=== PATIENT | female | born 1950 | race Caucasian/White ===

== ENCOUNTER → 2018-03-02 | Outpatient (CLI) | payer MEDICARE ==
--- NOTE | 2018-03-02 18:12 | KCIC ---
Bilateral digital screening mammograms with 3-D tomosynthesis: Reason for examination: Routine screening. Recently diagnosed with multiple myeloma. Port in the right chest/breast. Comparison is made to previous studies dated 10/30/2015 and 06/07/2013. Bilateral mammograms in CC and oblique projections were obtained with 2-D imaging and 3-D tomosynthesis imaging on a Siemens Inspiration unit and reviewed on the workstation. Interpretation was made with the benefit of CAD. The skin and nipples show no abnormalities. No abnormal axillary lymph nodes are seen. The breast parenchyma is heterogeneously dense. (Breast density: Category C.) There are no dominant masses, suspicious calcifications or architectural distortion. Benign calcifications are present. Impression: No evidence of malignancy. Recommend routine screening. Your patient's mammogram demonstrates that she has dense breast tissue (breast density category C or D), which could hide abnormalities, and if she has other risk factors for breast cancer that have been identified, she might benefit from supplemental screening tests that may be suggested by you as her ordering physician. Dense breast tissue, in and of itself, is a relatively common condition. Therefore, this information is not provided to cause undue concern, but rather to raise your awareness and to promote discussion with your patient regarding the presence of other risk factors, in addition to dense breast tissue. Your patient's mammography results will be sent to her. BI-RAD Category 2: Benign. "Our facility is accredited by the [employer] Mammography Program." This patient's information has been entered into a reminder system for the patient to be notified with the results of her examination and a target date for the next mammogram. Electronically signed by: Zeniada Salazar MD (03/02/2018 6:08 PM) [id number]
== END | disposition home or self-care (01) ==
LOC: KCIC MAMMO 10:47
PROVIDERS: ATTEND Obstetrics & Gynecology
DX: Z12.31 Encounter for screening mammogram for malignant neoplasm of breast (principal)
CPT/HCPCS: 77063; 77067

== ENCOUNTER 2018-05-18 11:09 | Inpatient (IN) | payer MEDICARE ==
[~2018-05-18] VITALS: Ht 172.7 cm; Wt 72.4 kg
[2018-05-18] MEDS ORDERED: IOHEXOL 350 MG/ML 100 ML VIAL. IV ONE (11:30)
[2018-05-18] MEDS ORDERED: CONTRAST GIVEN. MC PRN (11:45)
[2018-05-18 11:50] LABS: HEMATOCRIT 30.3 % (36.0-47.0); HEMOGLOBIN 9.9 g/dL (12.0-15.5); RED BLOOD COUNT 2.9 x10^6/uL (3.50-5.40); WHITE BLOOD COUNT 3.4 x10^3/uL (4.0-11.0)
[2018-05-18 11:55] LABS: CALCIUM 8.9 mg/dL (8.5-10.1); GFR 24.9; POTASSIUM 3.9 mmol/L (3.5-5.1)
--- NOTE | 2018-05-18 12:00 | RAD ---
CT HEAD INDICATION: code stroke facial weakness COMPARISON: None Available. Exposure: One or more of the following individualized dose reduction techniques were utilized for this examination: 1. Automated exposure control 2. Adjustment of the mA and/or kV according to patient size 3. Use of iterative reconstruction technique TECHNIQUE: 5 mm contiguous axial images were obtained from the skull base to the vertex in both bone and soft tissue algorithm. FINDINGS: No abnormal attenuation within the brain parenchyma. No evidence of acute intracranial hemorrhage. No extra-axial fluid collections. No mass effect or midline shift. Ventricular size is appropriate. Basal cisterns are patent. No fractures identified.Coleman-white differentiation is preserved.Globes and orbits are within normal limits. Paranasal sinuses and mastoid air cells are clear. IMPRESSION: No acute intracranial findings. Dr. Valdes in ER was informed at 11:55 am same day exam. Electronically signed by: Dustin Garcia MD (05/18/2018 11:57 AM) [facility]
--- NOTE | 2018-05-18 12:03 | PHYS DOC ---
Past Medical History Past Medical History: Hypothyroid Past Medical History multiple myeloma Past Surgical History hx of bone marrow biopsy Alcohol Use: None Drug Use: None Adult General Chief Complaint Chief Complaint: NEURO SYMPTOMS/DEFICITS HPI HPI This is a pleasant 67-year-old female presenting to the emergency department today with left-sided facial droop that started at 1045. She has multiple myeloma and is currently undergoing chemotherapy through Dr. baker office. She had an appointment today when her noticed that she had slurred speech and facial asymmetry. He return to the emergency department today for evaluation for possible stroke. Review of systems is negative for chest pain shortness of breath abdominal pain nausea vomiting diaphoresis fevers or chills. She denies acute vision changes. All other review of systems is negative unless otherwise noted in history of present illness. ED course: 67-year-old female presenting to the emergency department today with an episode of slurred speech and left-sided facial asymmetry. On arrival the patient reports that her symptoms are rapidly improving. NIH stroke scale performed which shows mild subtle facial asymmetry. Her speech is becoming more clear. I had a long risk-benefit discussion with the patient and her about TPA administration including the benefits and risks. I also spoke with our neurologist telephone ad taker Dr. molina. TPA relatively contraindicated because the patient's symptoms are rapidly improving. Patient meets inclusion criteria and does not meet absolute contraindication. Patient was offered TPA with the understanding that she does have mild symptoms and rapidly improving symptoms. Patient does not want TPA at this time. 12:02PM. Patient is wanting to leave. I explained the need for MRI and neurology consultation and further evaluation given her strokelike symptoms. Patient does states understanding.12:25PM. I spoke with Dr. Stone to obtain a bed for the patient. Dr. Stone excepted the patient as long as the patient is willing to stay. Pt is agreeable. Basic bridge orders were placed. The patient was then admitted. -Talked to Dr. Molina at 1145. She recommends offering TPA which I did and the pt declines. Inclusion criteria Yes Clinical diagnosis of ischemic stroke causing measurable neurologic deficit Onset of symptoms <4.5 hours before beginning treatment; if the exact time of stroke onset is not known, it is defined as the last time the patient was known to be normal or at neurologic baseline Age ?18 years Exclusion criteria Patient history Ischemic stroke or severe head trauma in the previous three months NO Previous intracranial hemorrhageNO Intra-axial intracranial neoplasmNO Gastrointestinal malignancy or hemorrhage in the previous 21 daysNO Intracranial or intraspinal surgery within the prior three monthsNO Clinical Symptoms suggestive of subarachnoid hemorrhageNO Persistent blood pressure elevation (systolic ?185 mmHg or diastolic ?110 mmHg)* NO Active internal bleedingNO Presentation consistent with infective endocarditisNO Stroke known or suspected to be associated with aortic arch dissection NO Acute bleeding diathesis, including but not limited to conditions defined under 'Hematologic'NO HematologicNO Platelet count <100,000/mm3NO Current anticoagulant use with an INR >1.7 or PT >15 seconds or aPTT >40 seconds or PT >15 secondsNO Therapeutic doses of low molecular weight heparin received within 24 hours (eg, to treat VTE and ACS); this exclusion does not apply to prophylactic doses (eg, to prevent VTE)NO Current use of a direct thrombin inhibitor or direct factor Xa inhibitor with evidence of anticoagulant effect by laboratory tests such as aPTT, INR, ECT, TT , or appropriate factor Xa activity assays NO Head CT Evidence of hemorrhageNO Extensive regions of obvious hypodensity consistent with irreversible injury NO Warnings Only minor and isolated neurologic signs or rapidly improving symptoms? YES Serum glucose <50 mg/dL (<2.8 mmol/L)?NO Serious trauma in the previous 14 daysNO Major surgery in the previous 14 daysNO History of gastrointestinal bleeding (remote) or genitourinary bleeding *NO Seizure at the onset of stroke with postictal neurologic impairmentsNO NO Arterial puncture at a noncompressible site in the previous seven days *NO Large (?10 mm), untreated, unruptured intracranial aneurysmNO Untreated intracranial vascular malformationNO Additional warnings for treatment from 3 to 4.5 hours from symptom onset?? NO Age >80 yearsNO Oral anticoagulant use regardless of INRNO Severe stroke (NIHSS score >25)NO Combination of both previous ischemic stroke and diabetes mellitusNO Review of Systems Review of Systems SEE ABOVE. Current Medications Current Medications Current Medications Medications (Trade) Dose Ordered Sig/Foster Start Time Stop Time Status Last Admin Dose Admin Info (CONTRAST GIVEN -- Rx MONITORING) 1 each PRN DAILY PRN 05/18/18 11:45 05/20/18 11:44 Iohexol (Omnipaque 350 Mg/ml) 75 ml 1X ONCE 05/18/18 11:30 05/18/18 11:32 DC Allergies Allergies Allergies Coded Allergies Type Severity Reaction Last Updated Verified No Known Drug Allergies 05/18/18 No Physical Exam Physical Exam SEE ABOVE Constitutional: Well developed, well nourished, no acute distress, non-toxic appearance. [] HENT: Normocephalic, atraumatic, bilateral external ears normal, oropharynx moist, no oral exudates, nose normal. [] Eyes: PERRLA, EOMI, conjunctiva normal, no discharge. [] Neck: Normal range of motion, no tenderness, supple, no stridor. [] Cardiovascular:Heart rate regular rhythm, no murmur [] Lungs & Thorax: Bilateral breath sounds clear to auscultation [] Abdomen: Bowel sounds normal, soft, no tenderness, no masses, no pulsatile masses. [] Skin: Warm, dry, no erythema, no rash. [] Back: No tenderness, no CVA tenderness. [] Extremities: No tenderness, no cyanosis, no clubbing, ROM intact, no edema. [] Neurologic: Mental status: Awake oriented and alert x3 Cranial nerves: Extraocular movements intact, eyebrows alonso bilaterally, patient has mild facial asymmetry of the left side, uvula elevation nl, shoulder shrug intact bilaterally, tongue protrusion normal DTRs: 2+ Sensation: equal and normal in all extremities Strength: 5/5 in upper and lower extremities bilaterally NIH stroke scale 1. Psychologic: Affect normal, judgement normal, mood normal. [] Current Patient Data Vital Signs Vital Signs Date Time Temp Pulse Resp B/P (MAP) Pulse Ox O2 Delivery O2 Flow Rate FiO2 05/18/18 12:00 104 15 92 05/18/18 11:10 98.3 134/85 (101) Room Air 98.3 Lab Values Laboratory Tests Test 05/18/18 11:16 05/18/18 11:20 Glucose (Fingerstick) 137 mg/dL (70-99) H White Blood Count 3.4 x10^3/uL (4.0-11.0) L Red Blood Count 2.90 x10^6/uL (3.50-5.40) L Hemoglobin 9.9 g/dL (12.0-15.5) L Hematocrit 30.3 % (36.0-47.0) L Mean Corpuscular Volume 104 fL (79-100) H Mean Corpuscular Hemoglobin 34 pg (25-35) Mean Corpuscular Hemoglobin Concent 33 g/dL (31-37) Red Cell Distribution Width 18.0 % (11.5-14.5) H Platelet Count 178 x10^3/uL (140-400) Prothrombin Time 13.0 SEC (11.7-14.0) Prothrombin Time INR 1.0 (0.8-1.1) PTT 23 SEC (24-38) L Sodium Level 142 mmol/L (136-145) Potassium Level 3.9 mmol/L (3.5-5.1) Chloride Level 106 mmol/L (98-107) Carbon Dioxide Level 24 mmol/L (21-32) Anion Gap 12 (6-14) Blood Urea Nitrogen 28 mg/dL (7-20) H Creatinine 2.0 mg/dL (0.6-1.0) H Estimated GFR (Cockcroft-Gault) 24.9 Glucose Level 135 mg/dL (70-99) H Calcium Level 8.9 mg/dL (8.5-10.1) Vitamin B12 Level 1290 pg/mL (247-911) H Thyroid Stimulating Hormone (TSH) 3.295 uIU/mL (0.358-3.74) Laboratory Tests 05/18/18 11:20 Laboratory Tests 05/18/18 11:20 EKG EKG [] Radiology/Procedures Radiology/Procedures [] Course & Med Decision Making Course & Med Decision Making Pertinent Labs and Imaging studies reviewed. (See chart for details) [] Dragon Disclaimer Dragon Disclaimer This electronic medical record was generated, in whole or in part, using a voice recognition dictation system. Departure Departure Impression: Primary Impression: Facial asymmetry Additional Impression: Stroke-like episode Disposition: ADMITTED INPATIENT Admitting Physician: Indigo Stone Condition: STABLE Referrals: NON,STAFF (PCP) Problem Qualifiers JUMANA PALENCIA MD May 18, 2018 12:03
[2018-05-18] MEDS ORDERED: ASPIRIN CHEWABLE 81 MG TABLET. PO ONE (13:00)
--- NOTE | 2018-05-18 13:07 | EKG ---
[facility] [address] [place] [address] Test Date: 2018-05-18 Test Time: 11:20:18 Pat Name: BECKY VELA Department: Room: [facility] Gender: F Outer [employer] Tool: : 1950 Requested By: JUMANA PALENCIA Order Number: [id number] Reading MD: Reed Hines Measurements Intervals [place] Rate: 106 P: 42 FL: 142 QRS: 48 QRSD: 68 T: 49 QT: 304 QTc: 410 Interpretive Statements SINUS TACHYCARDIA Electronically Signed On 05-28-2018 12:30:11 CDT by Reed Hines
--- NOTE | 2018-05-18 13:12 | PDOC1 ---
History and Physical Date of Admission Date of Admission DATE: 05/18/18 TIME: 13:12 Identification/Chief Complaint Chief Complaint slurrred speech and right facial droop 10:45 AM Source Source: Caregiver, Chart review, Patient History of Present Illness History of Present Illness 67-year-old white female, known patient of Dr. Thapa for multiple myeloma and follows closely, 10:45 AM today, noticed slurred speech and right facial droop maybe lasted for minutes only. Now back to baseline. Neuro Exam nonfocal. NIH scale score is only 1. Hemoglobin 9, WBC 3.4 with platelets 178. Blood pressure before. Admitted for stroke workup/TIA with neurology consult and MRI brain She wants to go home tomorrow. She is Supposed to have a shot today in heme onc office and would like to have that before 4 PM Past Medical History Heme/Onc: Other (MM) Past Surgical History Past Surgical History: No pertinent history Family History Family History: No Significant Social History Smoke: No ALCOHOL: none Drugs: None Current Problem List Problem List Problems Medical Problems: (1) Facial asymmetry Status: Acute (2) Stroke-like episode Status: Acute Current Medications Current Medications Current Medications Iohexol (Omnipaque 350 Mg/ml) 75 ml 1X ONCE IV ; Start 05/18/18 at 11:30; Stop 05/18/18 at 11:32; Status DC Info (CONTRAST GIVEN -- Rx MONITORING) 1 each PRN DAILY PRN MC SEE COMMENTS; Start 05/18/18 at 11:45; Stop 05/20/18 at 11:44 Aspirin (Children'S Aspirin) 324 mg 1X ONCE PO ; Start 05/18/18 at 13:00; Stop 05/18/18 at 13:05; Status DC Allergies Allergies: Coded Allergies: No Known Drug Allergies (Unverified , 05/18/18) ROS Review of System A 14 point ROS was completed with the following noted as positive: Other systems reviewed and negative. \CONSTITUTIONAL: No fever or chills EYES: No recent changes SKIN: No rash or itching CARDIOVASCULAR: No chest pain, syncope, palpitations, or edema RESPIRATORY: No SOB or cough GASTROINTESTINAL: No nausea, vomiting or abdominal pain NEUROLOGICAL: No headaches or weakness ENDOCRINE: No cold or heat intolerance GENITOURINARY: No urgency or frequency of urination MUSCULOSKELETAL: No back pain or joint pain LYMPHATICS: No enlarged lymph nodes PSYCHIATRIC: No anxiety or depression Physical Exam General: Alert, Oriented X3, Cooperative, No acute distress HEENT: Atraumatic, PERRLA Lungs: Clear to auscultation Heart: S1S2, RRR, no thrills, no rubs Cardiovascular: S1, S2 Breasts: Normal, Rt breast nml w/o mass, Lt breast nml w/o mass, Nipples normal Abdomen: Normal bowel sounds, Soft, No tenderness, No hepatosplenomegaly, No masses Rectal Exam: not examined PELVIC: Nml ext genitalia Extremities: No clubbing, No cyanosis, No edema, Normal pulses, No tenderness/ swelling Skin: No rashes, No breakdown, No significant lesion Neuro: Normal gait, Normal speech, Strength at 5/5 X4 ext, Normal tone, Sensation intact, Cranial nerves 3-12 NL, Reflexes 2+ Psych/Mental Status: Mental status NL, Mood NL Vitals Vitals Vital Signs Date Time Temp Pulse Resp B/P (MAP) Pulse Ox O2 Delivery O2 Flow Rate FiO2 05/18/18 11:10 98.3 109 11 134/85 (101) 96 Room Air 98.3 Labs Labs Laboratory Tests Test 05/18/18 11:16 05/18/18 11:20 Glucose (Fingerstick) 137 mg/dL (70-99) White Blood Count 3.4 x10^3/uL (4.0-11.0) Red Blood Count 2.90 x10^6/uL (3.50-5.40) Hemoglobin 9.9 g/dL (12.0-15.5) Hematocrit 30.3 % (36.0-47.0) Mean Corpuscular Volume 104 fL (79-100) Mean Corpuscular Hemoglobin 34 pg (25-35) Mean Corpuscular Hemoglobin Concent 33 g/dL (31-37) Red Cell Distribution Width 18.0 % (11.5-14.5) Platelet Count 178 x10^3/uL (140-400) Prothrombin Time 13.0 SEC (11.7-14.0) Prothromb Time International Ratio 1.0 (0.8-1.1) Activated Partial Thromboplast Time 23 SEC (24-38) Sodium Level 142 mmol/L (136-145) Potassium Level 3.9 mmol/L (3.5-5.1) Chloride Level 106 mmol/L (98-107) Carbon Dioxide Level 24 mmol/L (21-32) Anion Gap 12 (6-14) Blood Urea Nitrogen 28 mg/dL (7-20) Creatinine 2.0 mg/dL (0.6-1.0) Estimated GFR (Cockcroft-Gault) 24.9 Glucose Level 135 mg/dL (70-99) Calcium Level 8.9 mg/dL (8.5-10.1) Laboratory Tests Test 05/18/18 11:16 05/18/18 11:20 Glucose (Fingerstick) 137 mg/dL (70-99) White Blood Count 3.4 x10^3/uL (4.0-11.0) Red Blood Count 2.90 x10^6/uL (3.50-5.40) Hemoglobin 9.9 g/dL (12.0-15.5) Hematocrit 30.3 % (36.0-47.0) Mean Corpuscular Volume 104 fL (79-100) Mean Corpuscular Hemoglobin 34 pg (25-35) Mean Corpuscular Hemoglobin Concent 33 g/dL (31-37) Red Cell Distribution Width 18.0 % (11.5-14.5) Platelet Count 178 x10^3/uL (140-400) Prothrombin Time 13.0 SEC (11.7-14.0) Prothromb Time International Ratio 1.0 (0.8-1.1) Activated Partial Thromboplast Time 23 SEC (24-38) Sodium Level 142 mmol/L (136-145) Potassium Level 3.9 mmol/L (3.5-5.1) Chloride Level 106 mmol/L (98-107) Carbon Dioxide Level 24 mmol/L (21-32) Anion Gap 12 (6-14) Blood Urea Nitrogen 28 mg/dL (7-20) Creatinine 2.0 mg/dL (0.6-1.0) Estimated GFR (Cockcroft-Gault) 24.9 Glucose Level 135 mg/dL (70-99) Calcium Level 8.9 mg/dL (8.5-10.1) VTE Prophylaxis Ordered VTE Prophylaxis Devices: Yes VTE Pharmacological Prophylaxi: Yes Assessment/Plan Assessment/Plan Right shallow nasolabial fold, slurred [id number] include TIA rule out acute CVA, vs buchanan's palsy? MM on meds PLan: NIH score 1 OBS Aspirin 1 now Okay to cont all home meds Okay to have that heme onc shot today before 4 PM Consulted neurology MRI brain Full code Seen at ER dw at bedside too MARISELA RODRIGUEZ MD May 18, 2018 13:12
[2018-05-18 14:40] VITALS: BP 132/80
--- NOTE | 2018-05-18 14:57 | RAD ---
MRI of the brain without contrast 05/18/2018 Clinical History: Slurred speech with left-sided facial droop for 4 hours. Multiple myeloma. Technique: Unenhanced T1-weighted sagittal and axial, T2-weighted axial and coronal and FLAIR, gradient echo and diffusion-weighted axial images of the brain were obtained. Findings: Comparison is made to patient's CT scan of the head dated 05/18/2018. There is generalized parenchymal atrophy. Patchy and several small scattered areas of increased signal intensity are seen within the periventricular and subcortical white matter of both cerebral hemispheres on the FLAIR and T2-weighted images consistent with areas of mild small vessel ischemic disease. Small old areas of infarction are seen involving both cerebral hemispheres. These measure 2 mm to 5 mm in size. A 5 mm focal area of increased signal intensity is seen in the left parietal region on the diffusion weighted images which is felt to be artifactual. No acute parenchymal abnormality is seen. No extra-axial fluid collection is seen. There is no definite MRI evidence of acute ischemia/infarction. The paranasal sinuses are essentially clear. Normal flow voids are seen within the major vascular structures surrounding the brain parenchyma. Impression: No acute parenchymal abnormality is seen. Electronically signed by: Levon Berry MD (05/18/2018 2:55 PM) [facility]
--- NOTE | 2018-05-18 15:23 | NUR ---
1350 Received from ED per bed, accompanied by spouse, alert/oriented, stood up transferred self to bed independently. 1357 Tiffanie, charger nurse here to perform NIH stroke scale with ED nurse Liset, RN 1410 Dr. Molina here to assess, then down to MRI per w/c 1440 Returned from MRI vital signs taken, admission started 1450 To cardiology per w/c for Echo
--- NOTE | 2018-05-18 16:39 | PDOC2 ---
NEUROLOGY CONSULT Date of Admission Date of Admission DATE: 05/18/18 TIME: 16:20 Reason for Consult Reason for Consult: IMPRESSION: CVA syndrome. TIA likely. Slurred speech. Facial drooping. Multiple myeloma. Hypothyroidism. Renal insufficiency/failure. RECOMMENDATIONS/PLAN: ASA 325 mg daily. Carotid A US + Doppler. Echo + Bubble study. Fasting lipid panel in a.m. Zocor 5 mg HS, dose adjustment per lipid panel results on 05/19/18. Lab: see orders. Brain MRI w/o contrast on 05/18/18: No acute CVA. History of Present Illness This is 67-year-old female patient with history of multiple myeloma and has been followed with Dr. Thapa closely. She developed symptoms of slurred speech and right facial droop around 10:45 am on 05/18/18. She was brought to [facility] ER of [facility] and her facial drooping was not noticeable. Her NIH was 1 per ER. She was offered TPA after all criteria were met, but patient and her decided no TPA. She was then admitted into hospital for further evaluation. Past Medical History Heme/Onc: Multiple myeloma. Past Surgical History No major surgery recently. Family History Non contributory.. Allergies No Known Drug Allergies (Unverified , 05/18/18) MEDICATIONS: Refer to [facility] SOCIAL HISTORY: Lives at home. Denies smoking, drinking, and illicit drug use. REVIEW OF SYSTEMS: Constitutional: No malnutrition or cachexia. Head: No traumatic brain or head injury. Skin: No edema, or rash. Ear: No infection. Eyes: No vision loss or color blindness. Nose: No bleeding or purulent discharges. Hearing: No hearing decrease. Neck: No injury. Breast: No history of cancer, masses,or discharges. Cardiac: No MN, arrhythmia. Pulmonary: No COPD. GI: No GI ulcer, GI bleeding. Urinary/genital: UTI. Endocrinologic: No cousin face, craniofacial dysmorphism, polydactyly. Skeletomuscular: No muscular atrophy, deformity. Neurological: see HP. Psychiatric: Denies drug use/abuse. Otherwise, not -nflvj review of systems. PHYSICAL EXAMINATION: General appearance is in acute distress. HEENT: Normocephalic and nontraumatic. Eyes, nose, ears, and throat are unremarkable. Neck is supple. No lymphadenopathy. No bruits are heard over the carotid artery. No crepitus. Cardiovascular: S1, S2, regular rate and rhythm. Pulmonary: Clear to auscultation bilaterally. Abdomen: Bowel sounds are positive. Abdomen is soft, nontender, and nondistended. Extremities: No rash, lesions, or edema. No restriction of range of motion NEUROLOGICAL EXAMINATION: Alert Oriented to time, place and person. PERRL. EOMI. CN: no focal findings. Muscle tone: within normal. Muscle strength: 5 DTR: 1-2 Plantar reflex: Flexor response bilaterally Gait: not examined in chair. Sensory exam: no abnormal findings. No cerebellar signs elicited. F-T-N test fine. Current Medications Current Medications Current Medications Iohexol (Omnipaque 350 Mg/ml) 75 ml 1X ONCE IV ; Start 05/18/18 at 11:30; Stop 05/18/18 at 11:32; Status DC Info (CONTRAST GIVEN -- Rx MONITORING) 1 each PRN DAILY PRN MC SEE COMMENTS; Start 05/18/18 at 11:45; Stop 05/20/18 at 11:44 Aspirin (Children'S Aspirin) 324 mg 1X ONCE PO Last administered on 05/18/18at 13:24; Start 05/18/18 at 13:00; Stop 05/18/18 at 13:05; Status DC Levothyroxine Sodium (Synthroid) 88 mcg DAILY06 PO ; Start 05/19/18 at 06:00 Allergies Allergies: Allergies Coded Allergies Type Severity Reaction Last Updated Verified No Known Drug Allergies 05/18/18 No ROS Review of System The patient denies any associated fevers, chills, headache, ear pain, rhinorrhea , sore throat, stiff neck, productive cough, chest pain, shortness of breath, back or flank pain, abdominal pain, nausea, vomiting, diarrhea, constipation, dysuria, rash, numbness, weakness, tingling, incontinence, difficulty ambulating, or diaphoresis. Physical Exam Physical Exam General: Well developed, well nourished, no acute distress, well appearing HEENT: Pupils equally round and reactive to light, EOMI, no discharge, normal conjunctiva Neck: Supple, no nuchal rigidity, no JVD, trachea midline, no tenderness Cardiac: RRR, no murmurs, no gallops, no rubs Chest/Lungs: CTAB, no wheeze, no rhonchi, no crackles Abdomen: soft, non-distended, no guarding, no peritoneal signs, non-tender Back: No tenderness Extremities: no edema, pulses intact, non-tender,capillary refill <3 sec bilateral upper and lower extremities, Neuro: Alert and oriented x 4, no focal deficits, normal speech Vitals Vitals: Vital Signs Date Time Temp Pulse Resp B/P (MAP) Pulse Ox O2 Delivery O2 Flow Rate FiO2 05/18/18 14:40 98.4 83 14 132/80 (97) 96 Room Air 98.4 Labs Labs Laboratory Tests Test 05/18/18 11:16 05/18/18 11:20 Glucose (Fingerstick) 137 mg/dL (70-99) White Blood Count 3.4 x10^3/uL (4.0-11.0) Red Blood Count 2.90 x10^6/uL (3.50-5.40) Hemoglobin 9.9 g/dL (12.0-15.5) Hematocrit 30.3 % (36.0-47.0) Mean Corpuscular Volume 104 fL (79-100) Mean Corpuscular Hemoglobin 34 pg (25-35) Mean Corpuscular Hemoglobin Concent 33 g/dL (31-37) Red Cell Distribution Width 18.0 % (11.5-14.5) Platelet Count 178 x10^3/uL (140-400) Prothrombin Time 13.0 SEC (11.7-14.0) Prothromb Time International Ratio 1.0 (0.8-1.1) Activated Partial Thromboplast Time 23 SEC (24-38) Sodium Level 142 mmol/L (136-145) Potassium Level 3.9 mmol/L (3.5-5.1) Chloride Level 106 mmol/L (98-107) Carbon Dioxide Level 24 mmol/L (21-32) Anion Gap 12 (6-14) Blood Urea Nitrogen 28 mg/dL (7-20) Creatinine 2.0 mg/dL (0.6-1.0) Estimated GFR (Cockcroft-Gault) 24.9 Glucose Level 135 mg/dL (70-99) Calcium Level 8.9 mg/dL (8.5-10.1) Vitamin B12 Level 1290 pg/mL (247-911) Thyroid Stimulating Hormone (TSH) 3.295 uIU/mL (0.358-3.74) Laboratory Tests Test 05/18/18 11:16 05/18/18 11:20 Glucose (Fingerstick) 137 mg/dL (70-99) White Blood Count 3.4 x10^3/uL (4.0-11.0) Red Blood Count 2.90 x10^6/uL (3.50-5.40) Hemoglobin 9.9 g/dL (12.0-15.5) Hematocrit 30.3 % (36.0-47.0) Mean Corpuscular Volume 104 fL (79-100) Mean Corpuscular Hemoglobin 34 pg (25-35) Mean Corpuscular Hemoglobin Concent 33 g/dL (31-37) Red Cell Distribution Width 18.0 % (11.5-14.5) Platelet Count 178 x10^3/uL (140-400) Prothrombin Time 13.0 SEC (11.7-14.0) Prothromb Time International Ratio 1.0 (0.8-1.1) Activated Partial Thromboplast Time 23 SEC (24-38) Sodium Level 142 mmol/L (136-145) Potassium Level 3.9 mmol/L (3.5-5.1) Chloride Level 106 mmol/L (98-107) Carbon Dioxide Level 24 mmol/L (21-32) Anion Gap 12 (6-14) Blood Urea Nitrogen 28 mg/dL (7-20) Creatinine 2.0 mg/dL (0.6-1.0) Estimated GFR (Cockcroft-Gault) 24.9 Glucose Level 135 mg/dL (70-99) Calcium Level 8.9 mg/dL (8.5-10.1) Vitamin B12 Level 1290 pg/mL (247-911) Thyroid Stimulating Hormone (TSH) 3.295 uIU/mL (0.358-3.74) JEFF NOBLES MD May 18, 2018 16:39
[2018-05-18] MEDS ORDERED: ONDANSETRON ODT 4 MG TAB.RAPDIS. PO PRN (17:00)
[2018-05-18] MEDS ORDERED: LOPERAMIDE 2 MG CAPSULE PO PRN (17:00)
[2018-05-18 19:05] VITALS: BP 118/80
--- NOTE | 2018-05-18 19:07 | CARD ---
MR#: [id number] Date of Study: 05/18/2018 Ordering Physician: JEFF NOBLES, Referring Physician: MARISELA RODRIGUEZ Tech: Blossom Sandhu [facility] APPROVED REPORT EXAM: Two-dimensional and M-mode echocardiogram with Doppler, color Doppler with bubble study. Other Information Quality : GoodHR: 86bpm Rhythm : NSR INDICATION CVA/TIA 2D DIMENSIONS RVDd3.0 (2.9-3.5cm)Left Atrium(2D)2.9 (1.6-4.0cm) IVSd1.1 (0.7-1.1cm)Aortic Root(2D)3.4 (2.0-3.7cm) LVDd3.9 (3.9-5.9cm)LVOT Diameter2.4 (1.8-2.4cm) PWd0.9 (0.7-1.1cm)LVDs2.8 (2.5-4.0cm) FS (%) 28.2 %SV37.1 ml LVEF(%)55.1 (>50%) M-Mode DIMENSIONS Left Atrium(MM)2.82 (2.5-4.0cm)Aortic Root3.19 (2.2-3.7cm) Aortic Valve AoV Peak Devon.97.8cm/sAoV VTI17.7cm AO Peak GR.3.8mmHgLVOT Peak Devon.81.9cm/s AO Mean GR.2mmHgAVA (VMAX)3.82cm2 ROOPA (VTI)3.50cm2 Mitral Valve MV E Rbpxhssw67.8cm/sMV DECEL [id number] MV A Hiqzyhri17.9cm/sE/A Ratio0.7 MV A Jorsvuyl83rs Pulmonary Valve PV Peak Bmsgonwx99.8cm/s Tricuspid Valve TR P. Jbkfdvyt003ry/sRAP VMJBWLLV8nhCn TR Peak Gr.40zjZjWMFF95opLl LEFT VENTRICLE The left ventricle is normal size. There is normal left ventricular wall thickness. The left ventricu lar systolic function is normal and the ejection fraction is within normal range. The Ejection Fracti on is 55-60%. There is normal LV segmental wall motion. Transmitral Doppler flow pattern is Grade I-a bnormal relaxation pattern. RIGHT VENTRICLE The right ventricle is normal size. There is normal right ventricular wall thickness. The right ventr icular systolic function is normal. ATRIA The left atrium size is normal. The right atrium size is normal. The interatrial septum is intact wit h no evidence for an atrial septal defect or patent foramen ovale as noted on 2-D or Doppler imaging. Injection of bubbles documented no interatrial shunt. AORTIC VALVE The aortic valve is normal in structure and function. The aortic valve is trileaflet. Doppler and Col or Flow revealed no significant aortic regurgitation. There is no significant aortic valvular stenosi s. There is no aortic valvular vegetation. MITRAL VALVE The mitral valve is normal in structure and function. There is no evidence of mitral valve prolapse. There is no mitral valve stenosis. Doppler and Color-flow revealed trace mitral regurgitation. TRICUSPID VALVE The tricuspid valve is normal in structure and function. Doppler and Color Flow revealed trace tricus pid regurgitation. The PA pressure was estimated at 22 mmHg. There is no tricuspid valve prolapse or vegetation. There is no tricuspid valve stenosis. PULMONIC VALVE The pulmonary valve is normal in structure and function. Doppler and Color Flow revealed trace pulmon ic valvular regurgitation. There is no pulmonic valvular stenosis. GREAT VESSELS The aortic root is borderline enlarged at 3.5cm. The ascending aorta is borderline enlarged at 3.7cm. There is mild pulmonary artery dilatation. The IVC is normal in size and collapses >50% with inspira tion. PERICARDIAL EFFUSION There is no evidence of significant pericardial effusion. Critical Notification Critical Value: No <Conclusion> The left ventricular systolic function is normal and the ejection fraction is within normal range. Th e Ejection Fraction is 55-60%. There is normal LV segmental wall motion. The interatrial septum is intact with no evidence for an atrial septal defect or patent foramen ovale as noted on 2-D or Doppler imaging. Injection of bubbles documented no interatrial shunt. The ascending aorta is borderline enlarged at 3.7cm. There is mild pulmonary artery dilatation. Signed by : Byron Wetzel, Electronically Approved : 05/18/2018 19:06:29
--- NOTE | 2018-05-18 20:10 | NUR ---
1630 Addendum: 05/18/18 at 2013 by KAYCEE ROLDAN RN 1630 Admitted from ED with stroke like symptoms, accompanied by spouse, alert/oriented, very talkative, NIH stroke scale completed by charge nurse, denies pain or discomfort, oriented to surroundings, call light within reach, side rails up x 2
[2018-05-18] MEDS: ACYCLOVIR 200 MG CAPSULE. PO SCH (20:57)
[2018-05-18] MEDS ORDERED: SIMVASTATIN 5 MG TABLET. PO SCH (21:00)
[2018-05-18 22:31] LABS: BILIRUBIN,URINE NEGATIVE (NEG); CLARITY,URINE CLEAR; COLOR,URINE YELLOW; NITRITE,URINE NEGATIVE (NEG); PROTEIN,URINE NEGATIVE (NEG-TRACE); UROBILINOGEN,URINE 0.2 mg/dL (0.2 mg/dL)
[2018-05-18 22:39] LABS: BACTERIA,URINE FEW /HPF (0-FEW); RBC,URINE 0 /HPF (0-2); SQUAMOUS EPITHELIAL CELL,UR OCC /LPF
[2018-05-18 23:19] VITALS: BP 96/60
[2018-05-19 03:53] VITALS: BP 95/61
[2018-05-19 05:14] LABS: CHOLESTEROL/HDL RATIO 2.8
[2018-05-19] MEDS ORDERED: LEVOTHYROXINE 88 MCG TABLET PO SCH ×2 (06:00)
[2018-05-19 07:00] VITALS: BP 121/88
[2018-05-19] MEDS ORDERED: ASPIRIN 325 MG TABLET PO SCH (08:00)
[2018-05-19] MEDS: ACYCLOVIR 200 MG CAPSULE. PO SCH (08:10)
--- NOTE | 2018-05-19 09:46 | PDOC ---
PROGRESS NOTES Chief Complaint Chief Complaint She was brought to [facility] ER of [facility] and her facial drooping was not noticeable. Her NIH was 1 per ER. She was offered TPA after all criteria were met, but patient and her decided no TPA. She was then admitted into hospital for further evaluation. Past Medical History Heme/Onc: Multiple myeloma. Past Surgical History No major surgery recently. Family History Non contributory.. Allergies No Known Drug Allergies (Unverified , 05/18/18) MEDICATIONS: Refer to [facility] SOCIAL HISTORY: Lives at home. Denies smoking, drinking, and illicit drug use. 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 These measure 2 mm to 5 mm in size. A 5 mm focal area of increased signal intensity is seen in the left parietal region on the diffusion weighted images which is felt to be artifactual. MACROCYTIC ANEMIA HYPERGLYCEMIA MULTIPLE MYELOMA PLan: TELE NEUROCHECKS Q 4 HRS CRISTOPHER Aspirin CAROTID DOPPLERS pending Okay to cont all home meds NEUROLOGY FOLLOWING MRI brain Full code ECHO WITH BUBBLE STUDY FLP LIPITOR 40MG PO Q HS ACCUCHECKS HEME CONSULT done last night baseline cr about 2 recently dw Vitals Vitals Vital Signs Date Time Temp Pulse Resp B/P (MAP) Pulse Ox O2 Delivery O2 Flow Rate FiO2 05/19/18 07:00 98.1 97 18 121/88 (99) 97 Room Air 98.1 Physical Exam General: Alert, Oriented X3, Cooperative, No acute distress Heart: Regular rate, Normal S1, Normal S2 Lungs: Clear Abdomen: Normal bowel sounds, Soft, No tenderness, No hepatosplenomegaly, No masses Extremities: No clubbing, No cyanosis, No edema, Normal pulses, No tenderness/ swelling Skin: No rashes, No breakdown, No significant lesion Labs LABS ATRIA The left atrium size is normal. The right atrium size is normal. The interatrial septum is intact with no evidence for an atrial septal defect or patent foramen ovale as noted on 2-D or Doppler imaging. Injection of bubbles documented no interatrial shunt. AORTIC VALVE The aortic valve is normal in structure and function. The aortic valve is trileaflet. Doppler and Color Flow revealed no significant aortic regurgitation. There is no significant aortic valvular stenosis. There is no aortic valvular vegetation. MITRAL VALVE The mitral valve is normal in structure and function. There is no evidence of mitral valve prolapse. There is no mitral valve stenosis. Doppler and Color- flow revealed trace mitral regurgitation. TRICUSPID VALVE The tricuspid valve is normal in structure and function. Doppler and Color Flow revealed trace tricuspid regurgitation. The PA pressure was estimated at 22 mmHg. There is no tricuspid valve prolapse or vegetation. There is no tricuspid valve stenosis. PULMONIC VALVE The pulmonary valve is normal in structure and function. Doppler and Color Flow revealed trace pulmonic valvular regurgitation. There is no pulmonic valvular stenosis. GREAT VESSELS The aortic root is borderline enlarged at 3.5cm. The ascending aorta is borderline enlarged at 3.7cm. There is mild pulmonary artery dilatation. The IVC is normal in size and collapses >50% with inspiration. PERICARDIAL EFFUSION There is no evidence of significant pericardial effusion. Critical Notification Critical Value: No <Conclusion> The left ventricular systolic function is normal and the ejection fraction is within normal range. The Ejection Fraction is 55-60%. There is normal LV segmental wall motion. The interatrial septum is intact with no evidence for an atrial septal defect or patent foramen ovale as noted on 2-D or Doppler imaging. Injection of bubbles documented no interatrial shunt. The ascending aorta is borderline enlarged at 3.7cm. There is mild pulmonary artery dilatation. Signed by : Chris Wetzel, Electronically Approved : 05/18/2018 19:06:29 DICTATED and SIGNED BY: CHRIS WETZEL MD DATE: 05/18/18 1906 [id number] CC: CHRIS WETZEL MD; NO PCP; JEFF NOBLES MD; MARISELA RODRIGUEZ MD ~ Page of MRI of the brain without contrast 05/18/2018 Clinical History: Slurred speech with left-sided facial droop for 4 hours. Multiple myeloma. Technique: Unenhanced T1-weighted sagittal and axial, T2-weighted axial and coronal and FLAIR, gradient echo and diffusion-weighted axial images of the brain were obtained. Findings: Comparison is made to patient's CT scan of the head dated 05/18/2018. There is generalized parenchymal atrophy. Patchy and several small scattered areas of increased signal intensity are seen within the periventricular and subcortical white matter of both cerebral hemispheres on the FLAIR and T2-weighted images consistent with areas of mild small vessel ischemic disease. Small old areas of infarction are seen involving both cerebral hemispheres. These measure 2 mm to 5 mm in size. A 5 mm focal area of increased signal intensity is seen in the left parietal region on the diffusion weighted images which is felt to be artifactual. No acute parenchymal abnormality is seen. No extra-axial fluid collection is seen. There is no definite MRI evidence of acute ischemia/infarction. The paranasal sinuses are essentially clear. Normal flow voids are seen within the major vascular structures surrounding the brain parenchyma. Impression: No acute parenchymal abnormality is seen. Laboratory Tests Test 05/18/18 11:16 05/18/18 11:20 05/18/18 22:07 05/19/18 03:50 Glucose (Fingerstick) 137 mg/dL (70-99) White Blood Count 3.4 x10^3/uL (4.0-11.0) Red Blood Count 2.90 x10^6/uL (3.50-5.40) Hemoglobin 9.9 g/dL (12.0-15.5) Hematocrit 30.3 % (36.0-47.0) Mean Corpuscular Volume 104 fL (79-100) Mean Corpuscular Hemoglobin 34 pg (25-35) Mean Corpuscular Hemoglobin Concent 33 g/dL (31-37) Red Cell Distribution Width 18.0 % (11.5-14.5) Platelet Count 178 x10^3/uL (140-400) Prothrombin Time 13.0 SEC (11.7-14.0) Prothromb Time International Ratio 1.0 (0.8-1.1) Activated Partial Thromboplast Time 23 SEC (24-38) Sodium Level 142 mmol/L (136-145) Potassium Level 3.9 mmol/L (3.5-5.1) Chloride Level 106 mmol/L (98-107) Carbon Dioxide Level 24 mmol/L (21-32) Anion Gap 12 (6-14) Blood Urea Nitrogen 28 mg/dL (7-20) Creatinine 2.0 mg/dL (0.6-1.0) Estimated GFR (Cockcroft-Gault) 24.9 Glucose Level 135 mg/dL (70-99) Calcium Level 8.9 mg/dL (8.5-10.1) Vitamin B12 Level 1290 pg/mL (247-911) Thyroid Stimulating Hormone (TSH) 3.295 uIU/mL (0.358-3.74) Urine Color Yellow Urine Clarity Clear Urine pH 5.0 Urine Specific [place] 1.025 Urine Protein Negative mg/dL (NEG-TRACE) Urine Glucose (UA) 500 mg/dL (NEG) Urine Ketones (Stick) Negative mg/dL (NEG) Urine Blood Negative (NEG) Urine Nitrite Negative (NEG) Urine Bilirubin Negative (NEG) Urine Urobilinogen Dipstick 0.2 mg/dL (0.2 mg/dL) Urine Leukocyte Esterase Negative (NEG) Urine RBC 0 /HPF (0-2) Urine WBC 5-10 /HPF (0-4) Urine Squamous Epithelial Cells Occ /LPF Urine Bacteria Few /HPF (0-FEW) Urine Mucus Mod /LPF Triglycerides Level 70 mg/dL (0-150) Cholesterol Level 259 mg/dL (0-200) LDL Cholesterol, Calculated 154 mg/dL (0-100) VLDL Cholesterol, Calculated 14 mg/dL (0-40) Non-HDL Cholesterol Calculated 168 mg/dL (0-129) HDL Cholesterol 91 mg/dL (40-60) Cholesterol/HDL Ratio 2.8 Assessment and Plan Assessmemt and Plan Problems Medical Problems: (1) Facial asymmetry Status: Acute (2) Stroke-like episode Status: Acute Comment Review of Relevant I have reviewed the following items rigo (where applicable) has been applied. Labs Laboratory Tests Test 05/18/18 11:16 05/18/18 11:20 05/18/18 22:07 05/19/18 03:50 Glucose (Fingerstick) 137 mg/dL (70-99) White Blood Count 3.4 x10^3/uL (4.0-11.0) Red Blood Count 2.90 x10^6/uL (3.50-5.40) Hemoglobin 9.9 g/dL (12.0-15.5) Hematocrit 30.3 % (36.0-47.0) Mean Corpuscular Volume 104 fL (79-100) Mean Corpuscular Hemoglobin 34 pg (25-35) Mean Corpuscular Hemoglobin Concent 33 g/dL (31-37) Red Cell Distribution Width 18.0 % (11.5-14.5) Platelet Count 178 x10^3/uL (140-400) Prothrombin Time 13.0 SEC (11.7-14.0) Prothromb Time International Ratio 1.0 (0.8-1.1) Activated Partial Thromboplast Time 23 SEC (24-38) Sodium Level 142 mmol/L (136-145) Potassium Level 3.9 mmol/L (3.5-5.1) Chloride Level 106 mmol/L (98-107) Carbon Dioxide Level 24 mmol/L (21-32) Anion Gap 12 (6-14) Blood Urea Nitrogen 28 mg/dL (7-20) Creatinine 2.0 mg/dL (0.6-1.0) Estimated GFR (Cockcroft-Gault) 24.9 Glucose Level 135 mg/dL (70-99) Calcium Level 8.9 mg/dL (8.5-10.1) Vitamin B12 Level 1290 pg/mL (247-911) Thyroid Stimulating Hormone (TSH) 3.295 uIU/mL (0.358-3.74) Urine Color Yellow Urine Clarity Clear Urine pH 5.0 Urine Specific [place] 1.025 Urine Protein Negative mg/dL (NEG-TRACE) Urine Glucose (UA) 500 mg/dL (NEG) Urine Ketones (Stick) Negative mg/dL (NEG) Urine Blood Negative (NEG) Urine Nitrite Negative (NEG) Urine Bilirubin Negative (NEG) Urine Urobilinogen Dipstick 0.2 mg/dL (0.2 mg/dL) Urine Leukocyte Esterase Negative (NEG) Urine RBC 0 /HPF (0-2) Urine WBC 5-10 /HPF (0-4) Urine Squamous Epithelial Cells Occ /LPF Urine Bacteria Few /HPF (0-FEW) Urine Mucus Mod /LPF Triglycerides Level 70 mg/dL (0-150) Cholesterol Level 259 mg/dL (0-200) LDL Cholesterol, Calculated 154 mg/dL (0-100) VLDL Cholesterol, Calculated 14 mg/dL (0-40) Non-HDL Cholesterol Calculated 168 mg/dL (0-129) HDL Cholesterol 91 mg/dL (40-60) Cholesterol/HDL Ratio 2.8 Laboratory Tests Test 05/18/18 11:16 05/18/18 11:20 05/18/18 22:07 05/19/18 03:50 Glucose (Fingerstick) 137 mg/dL (70-99) White Blood Count 3.4 x10^3/uL (4.0-11.0) Red Blood Count 2.90 x10^6/uL (3.50-5.40) Hemoglobin 9.9 g/dL (12.0-15.5) Hematocrit 30.3 % (36.0-47.0) Mean Corpuscular Volume 104 fL (79-100) Mean Corpuscular Hemoglobin 34 pg (25-35) Mean Corpuscular Hemoglobin Concent 33 g/dL (31-37) Red Cell Distribution Width 18.0 % (11.5-14.5) Platelet Count 178 x10^3/uL (140-400) Prothrombin Time 13.0 SEC (11.7-14.0) Prothromb Time International Ratio 1.0 (0.8-1.1) Activated Partial Thromboplast Time 23 SEC (24-38) Sodium Level 142 mmol/L (136-145) Potassium Level 3.9 mmol/L (3.5-5.1) Chloride Level 106 mmol/L (98-107) Carbon Dioxide Level 24 mmol/L (21-32) Anion Gap 12 (6-14) Blood Urea Nitrogen 28 mg/dL (7-20) Creatinine 2.0 mg/dL (0.6-1.0) Estimated GFR (Cockcroft-Gault) 24.9 Glucose Level 135 mg/dL (70-99) Calcium Level 8.9 mg/dL (8.5-10.1) Vitamin B12 Level 1290 pg/mL (247-911) Thyroid Stimulating Hormone (TSH) 3.295 uIU/mL (0.358-3.74) Urine Color Yellow Urine Clarity Clear Urine pH 5.0 Urine Specific [place] 1.025 Urine Protein Negative mg/dL (NEG-TRACE) Urine Glucose (UA) 500 mg/dL (NEG) Urine Ketones (Stick) Negative mg/dL (NEG) Urine Blood Negative (NEG) Urine Nitrite Negative (NEG) Urine Bilirubin Negative (NEG) Urine Urobilinogen Dipstick 0.2 mg/dL (0.2 mg/dL) Urine Leukocyte Esterase Negative (NEG) Urine RBC 0 /HPF (0-2) Urine WBC 5-10 /HPF (0-4) Urine Squamous Epithelial Cells Occ /LPF Urine Bacteria Few /HPF (0-FEW) Urine Mucus Mod /LPF Triglycerides Level 70 mg/dL (0-150) Cholesterol Level 259 mg/dL (0-200) LDL Cholesterol, Calculated 154 mg/dL (0-100) VLDL Cholesterol, Calculated 14 mg/dL (0-40) Non-HDL Cholesterol Calculated 168 mg/dL (0-129) HDL Cholesterol 91 mg/dL (40-60) Cholesterol/HDL Ratio 2.8 Medications Current Medications Iohexol (Omnipaque 350 Mg/ml) 75 ml 1X ONCE IV ; Start 05/18/18 at 11:30; Stop 05/18/18 at 11:32; Status DC Info (CONTRAST GIVEN -- Rx MONITORING) 1 each PRN DAILY PRN MC SEE COMMENTS; Start 05/18/18 at 11:45; Stop 05/20/18 at 11:44 Aspirin (Children'S Aspirin) 324 mg 1X ONCE PO Last administered on 05/18/18at 13:24; Start 05/18/18 at 13:00; Stop 05/18/18 at 13:05; Status DC Levothyroxine Sodium (Synthroid) 88 mcg DAILY06 PO ; Start 05/19/18 at 06:00; Status Cancel Aspirin (Manju Aspirin) 325 mg DAILYWBKFT PO Last administered on 05/19/18at 08: 10; Start 05/19/18 at 08:00 Simvastatin (Zocor) 5 mg QHS PO ; Start 05/18/18 at 21:00; Stop 05/18/18 at 21: 00; Status DC Levothyroxine Sodium (Synthroid) 88 mcg DAILY06 PO Last administered on at 06:01; Start 05/19/18 at 06:00 Acyclovir (Zovirax) 200 mg BID PO Last administered on 05/19/18at 08:10; Start 05/18/18 at 21:00 Ondansetron HCl (Zofran Odt) 4 mg PRN Q6HRS PRN PO NAUSEA/VOMITING; Start 05/18 at 17:00 Loperamide HCl (Imodium) 2 mg PRN Q15MIN PRN PO DIARRHEA; Start 05/18/18 at 17: 00 Vitals/I & O Vital Sign - Last 24 Hours 05/18/18 05/18/18 05/18/18 05/18/18 11:10 12:00 12:30 13:00 Temp 98.3 98.3 Pulse 109 104 104 102 Resp 11 15 15 26 B/P (MAP) 134/85 (101) Pulse Ox 96 92 94 94 O2 Delivery Room Air 05/18/18 05/18/18 05/18/18 05/18/18 13:30 14:40 19:05 20:00 Temp 98.4 98.2 98.4 98.2 Pulse 96 83 87 Resp 14 16 B/P (MAP) 132/80 (97) 118/80 (93) Pulse Ox 97 96 95 O2 Delivery Room Air Room Air Room Air 05/18/18 05/19/18 05/19/18 23:19 03:53 07:00 Temp 98.3 98.3 98.1 98.3 98.3 98.1 Pulse 78 100 97 Resp 16 16 18 B/P (MAP) 96/60 (72) 95/61 (72) 121/88 (99) Pulse Ox 93 93 97 O2 Delivery Room Air Room Air Room Air Intake and Output 05/18/18 05/18/18 05/19/18 14:59 22:59 06:59 Intake Total 275 ml 100 ml Balance 275 ml 100 ml DARCY MELENDREZ MD May 19, 2018 09:46
[2018-05-19 11:00] VITALS: BP 102/71
[2018-05-19] MEDS ORDERED: IV NORMAL SALINE 1000ML BAG 1,000 ML IV SCH (11:45)
--- NOTE | 2018-05-19 12:37 | RAD ---
Duplex ultrasound carotid arteries. HISTORY: Slurred speech, left-sided facial droop Duplex ultrasound was used to evaluate the carotid arteries. Real-time imaging, color flow imaging and Doppler were utilized for evaluation. There is no significant plaque noted at the carotid bifurcation on the right side on the real-time imaging. Color flow imaging is also unremarkable. Peak velocity in the right internal carotid artery was 60 cm/s with an end-diastolic velocity of 18 cm/s and a systolic velocity index of 0.9. There is antegrade flow in the right vertebral. On the left side there is minimal plaque carotid bifurcation on the left side. Color flow imaging was unremarkable. Peak velocity in the right internal carotid artery was 50 cm/s with an end-diastolic velocity of 22 cm/s and a systolic velocity index of 0.8. There is antegrade flow in the left vertebral. IMPRESSION: 1. No hemodynamically significant stenosis noted in the carotid arteries. 2. Antegrade flow in each vertebral. PQRS Compliance Statement - Stenosis calculations for carotid ultrasound studies are derived from validated velocity criteria which are known to correlate with the NASCET methodology. Electronically signed by: Manish Escoto MD (05/19/2018 12:35 PM) [facility]
--- NOTE | 2018-05-19 12:55 | PDOC3 ---
Discharge Summary Date of Admission: May 18, 2018 Date of Discharge: May 19, 2018 Follow-Up: 3-5 days Admitting Diagnosis comment: discharge diagnosis======== Assessment/Plan Right shallow nasolabial fold, slurred speech-resolved/// TIA //old cva Small old areas of infarction are seen involving both cerebral hemispheres. These measure 2 mm to 5 mm in size. A 5 mm focal area of increased signal intensity is seen in the left parietal region on the diffusion weighted images which is felt to be artifactual. 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 PLan: TELE NEUROCHECKS Q 4 HRS CRISTOPHER Aspirin CAROTID DOPPLERS ok Okay to cont all home meds NEUROLOGY FOLLOWING MRI brain reviewed Full code ECHO WITH BUBBLE STUDY FLP LIPITOR 40MG PO Q HS ACCUCHECKS HEME CONSULT done last night baseline cr about 2 recently dw Vitals Vitals Vital Signs Date Time Temp Pulse Resp B/P (MAP) Pulse Ox O2 Delivery O2 Flow Rate FiO2 05/19/18 07:00 98.1 97 18 121/88 (99) 97 Room Air 98.1 Physical Exam General: Alert, Oriented X3, Cooperative, No acute distress Heart: Regular rate, Normal S1, Normal S2 Lungs: Clear Abdomen: Normal bowel sounds, Soft, No tenderness, No hepatosplenomegaly, No masses Extremities: No clubbing, No cyanosis, No edema, Normal pulses, No tenderness/ swelling Skin: No rashes, No breakdown, No significant lesion Labs LABS ATRIA The left atrium size is normal. The right atrium size is normal. The interatrial septum is intact with no evidence for an atrial septal defect or patent foramen ovale as noted on 2-D or Doppler imaging. Injection of bubbles documented no interatrial shunt. AORTIC VALVE The aortic valve is normal in structure and function. The aortic valve is trileaflet. Doppler and Color Flow revealed no significant aortic regurgitation. There is no significant aortic valvular stenosis. There is no aortic valvular vegetation. MITRAL VALVE The mitral valve is normal in structure and function. There is no evidence of mitral valve prolapse. There is no mitral valve stenosis. Doppler and Color- flow revealed trace mitral regurgitation. TRICUSPID VALVE The tricuspid valve is normal in structure and function. Doppler and Color Flow revealed trace tricuspid regurgitation. The PA pressure was estimated at 22 mmHg. There is no tricuspid valve prolapse or vegetation. There is no tricuspid valve stenosis. PULMONIC VALVE The pulmonary valve is normal in structure and function. Doppler and Color Flow revealed trace pulmonic valvular regurgitation. There is no pulmonic valvular stenosis. GREAT VESSELS The aortic root is borderline enlarged at 3.5cm. The ascending aorta is borderline enlarged at 3.7cm. There is mild pulmonary artery dilatation. The IVC is normal in size and collapses >50% with inspiration. PERICARDIAL EFFUSION There is no evidence of significant pericardial effusion. Critical Notification Critical Value: No <Conclusion> The left ventricular systolic function is normal and the ejection fraction is within normal range. The Ejection Fraction is 55-60%. There is normal LV segmental wall motion. The interatrial septum is intact with no evidence for an atrial septal defect or patent foramen ovale as noted on 2-D or Doppler imaging. Injection of bubbles documented no interatrial shunt. The ascending aorta is borderline enlarged at 3.7cm. There is mild pulmonary artery dilatation. Signed by : Byron Wetzel, Electronically Approved : 05/18/2018 19:06:29 FINAL DIAGNOSIS Problems Medical Problems: (1) Facial asymmetry Status: Acute (2) Stroke-like episode Status: Acute Brief Hospital Course Ms. Dorado is a 67 old [sex] who presented with [ tia symptoms] CONDITION AT DISCHARGE: Improved Discharge Medications Current Medications Iohexol (Omnipaque 350 Mg/ml) 75 ml 1X ONCE IV ; Start 05/18/18 at 11:30; Stop 05/18/18 at 11:32; Status DC Info (CONTRAST GIVEN -- Rx MONITORING) 1 each PRN DAILY PRN MC SEE COMMENTS; Start 05/18/18 at 11:45; Stop 05/20/18 at 11:44 Aspirin (Children'S Aspirin) 324 mg 1X ONCE PO Last administered on 05/18/18at 13:24; Start 05/18/18 at 13:00; Stop 05/18/18 at 13:05; Status DC Levothyroxine Sodium (Synthroid) 88 mcg DAILY06 PO ; Start 05/19/18 at 06:00; Status Cancel Aspirin (Manju Aspirin) 325 mg DAILYWBKFT PO Last administered on 05/19/18at 08: 10; Start 05/19/18 at 08:00 Simvastatin (Zocor) 5 mg QHS PO ; Start 05/18/18 at 21:00; Stop 05/18/18 at 21: 00; Status DC Levothyroxine Sodium (Synthroid) 88 mcg DAILY06 PO Last administered on at 06:01; Start 05/19/18 at 06:00 Acyclovir (Zovirax) 200 mg BID PO Last administered on 05/19/18at 08:10; Start 05/18/18 at 21:00 Ondansetron HCl (Zofran Odt) 4 mg PRN Q6HRS PRN PO NAUSEA/VOMITING; Start 05/18 at 17:00 Loperamide HCl (Imodium) 2 mg PRN Q15MIN PRN PO DIARRHEA; Start 05/18/18 at 17: 00 Atorvastatin Calcium (Lipitor) 40 mg QHS PO ; Start 05/19/18 at 21:00 Sodium Chloride 1,000 ml @ 100 mls/hr Q10H IV Last administered on 05/19/18at 12:01; Start 05/19/18 at 11:45 Vital Signs Vital Signs Date Time Temp Pulse Resp B/P (MAP) Pulse Ox O2 Delivery O2 Flow Rate FiO2 05/19/18 11:00 98.0 99 18 102/71 (81) 94 Room Air 98.0 Labs Laboratory Tests Test 05/18/18 11:16 05/18/18 11:20 05/18/18 22:07 05/19/18 03:50 Glucose (Fingerstick) 137 mg/dL (70-99) White Blood Count 3.4 x10^3/uL (4.0-11.0) Red Blood Count 2.90 x10^6/uL (3.50-5.40) Hemoglobin 9.9 g/dL (12.0-15.5) Hematocrit 30.3 % (36.0-47.0) Mean Corpuscular Volume 104 fL (79-100) Mean Corpuscular Hemoglobin 34 pg (25-35) Mean Corpuscular Hemoglobin Concent 33 g/dL (31-37) Red Cell Distribution Width 18.0 % (11.5-14.5) Platelet Count 178 x10^3/uL (140-400) Prothrombin Time 13.0 SEC (11.7-14.0) Prothromb Time International Ratio 1.0 (0.8-1.1) Activated Partial Thromboplast Time 23 SEC (24-38) Sodium Level 142 mmol/L (136-145) Potassium Level 3.9 mmol/L (3.5-5.1) Chloride Level 106 mmol/L (98-107) Carbon Dioxide Level 24 mmol/L (21-32) Anion Gap 12 (6-14) Blood Urea Nitrogen 28 mg/dL (7-20) Creatinine 2.0 mg/dL (0.6-1.0) Estimated GFR (Cockcroft-Gault) 24.9 Glucose Level 135 mg/dL (70-99) Calcium Level 8.9 mg/dL (8.5-10.1) Vitamin B12 Level 1290 pg/mL (247-911) Thyroid Stimulating Hormone (TSH) 3.295 uIU/mL (0.358-3.74) Urine Color Yellow Urine Clarity Clear Urine pH 5.0 Urine Specific [place] 1.025 Urine Protein Negative mg/dL (NEG-TRACE) Urine Glucose (UA) 500 mg/dL (NEG) Urine Ketones (Stick) Negative mg/dL (NEG) Urine Blood Negative (NEG) Urine Nitrite Negative (NEG) Urine Bilirubin Negative (NEG) Urine Urobilinogen Dipstick 0.2 mg/dL (0.2 mg/dL) Urine Leukocyte Esterase Negative (NEG) Urine RBC 0 /HPF (0-2) Urine WBC 5-10 /HPF (0-4) Urine Squamous Epithelial Cells Occ /LPF Urine Bacteria Few /HPF (0-FEW) Urine Mucus Mod /LPF Triglycerides Level 70 mg/dL (0-150) Cholesterol Level 259 mg/dL (0-200) LDL Cholesterol, Calculated 154 mg/dL (0-100) VLDL Cholesterol, Calculated 14 mg/dL (0-40) Non-HDL Cholesterol Calculated 168 mg/dL (0-129) HDL Cholesterol 91 mg/dL (40-60) Cholesterol/HDL Ratio 2.8 Laboratory Tests Test 05/18/18 22:07 05/19/18 03:50 Urine Color Yellow Urine Clarity Clear Urine pH 5.0 Urine Specific [place] 1.025 Urine Protein Negative mg/dL (NEG-TRACE) Urine Glucose (UA) 500 mg/dL (NEG) Urine Ketones (Stick) Negative mg/dL (NEG) Urine Blood Negative (NEG) Urine Nitrite Negative (NEG) Urine Bilirubin Negative (NEG) Urine Urobilinogen Dipstick 0.2 mg/dL (0.2 mg/dL) Urine Leukocyte Esterase Negative (NEG) Urine RBC 0 /HPF (0-2) Urine WBC 5-10 /HPF (0-4) Urine Squamous Epithelial Cells Occ /LPF Urine Bacteria Few /HPF (0-FEW) Urine Mucus Mod /LPF Triglycerides Level 70 mg/dL (0-150) Cholesterol Level 259 mg/dL (0-200) LDL Cholesterol, Calculated 154 mg/dL (0-100) VLDL Cholesterol, Calculated 14 mg/dL (0-40) Non-HDL Cholesterol Calculated 168 mg/dL (0-129) HDL Cholesterol 91 mg/dL (40-60) Cholesterol/HDL Ratio 2.8 Allergies Allergies Coded Allergies Type Severity Reaction Last Updated Verified No Known Drug Allergies 05/18/18 No Disposition/Orders: D/C to Home Patient Instructions d/c planning 34 min DARCY MELENDREZ MD May 19, 2018 12:55
[2018-05-19] MEDS ORDERED: ACYC200C PO (12:58)
[2018-05-19] MEDS ORDERED: ATOR40TA59 PO (12:58)
[2018-05-19] MEDS ORDERED: LEVO88TA2 PO (12:58)
[2018-05-19] MEDS ORDERED: ASPI325T8 PO (12:58)
--- NOTE | 2018-05-19 12:59 | DISCH ---
DISCHARGE INSTRUCTIONS Condition on Discharge Condition on Discharge: Stable Activity After Discharge Activity Instructions for Disc: Activity as tolerated Lifting Instructions after Dis: No heavy lifting, No pulling or pushing Exercise Instruction after Dis: Walk 10 min, 3 x per day Driving Instructions after Dis: Do not drive today Diet after Discharge Diet after Discharge: Cardiac, Low Fat Checks after Discharge Checks after discharge: Check blood press - daily Contacting the DRMaciej after DC Call your doctor for: If your condition worsens DARCY MELENDREZ MD May 19, 2018 12:59
--- NOTE | 2018-05-19 13:10 | PDOC ---
PROGRESS NOTES Assessment 1. Possible transient ischemic attack with dysarthria and right facial droop which fully resolved. Investigation with MRI did not reveal any acute process. She did have evidence of prior small lacunar as well as small vessel disease. The carotid Doppler was negative for any stenosis. The echocardiogram did not reveal a cardioembolic source or an atrial shunt. 2. Mixed hyperlipidemia. She is concerned about getting on a statin because of her chemotherapy for multiple myeloma. 3. Chronic renal failure. The kidneys went into complete failure requiring dialysis with the diagnosis of multiple myeloma. Plan 1. She should continue aspirin for stroke prevention. She will need to talk with her truck bench mechanic/oncologist regarding the use of aspirin especially when she undergoes bone marrow ablation. She will likely need to hold aspirin prior to this procedure and during the stem cell transplant. 2. We discussed initiating Crestor 20 mg daily. She will call her truck bench mechanic/ oncologist regarding the initiation. We discussed how the LDL cholesterol is elevated. I would recommend getting this down less than 70 which can reduce her chance of recurrent stroke by a third. 3. We discussed all of her test results. She may be dismissed from a neurologic perspective. Subjective I feel just fine. I'm back to normal. Objective Vital Signs Date Time Temp Pulse Resp B/P (MAP) Pulse Ox O2 Delivery O2 Flow Rate FiO2 05/19/18 11:00 98.0 99 18 102/71 (81) 94 Room Air 98.0 Intake and Output 05/19/18 06:59 Intake Total 375 ml Balance 375 ml Intake Oral 375 ml # Voids 2 PHYSICAL EXAM She was alert, awake and cooperative. Speech was fluent and clear. She had a good fund of recent and remote knowledge. Attention and concentration was intact. She was well-groomed and well-nourished. She was fully oriented. Examination of the cranial nerves revealed visual srinivasan were full to confrontation. Extraocular movements were not intact. 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 The left eye had normal extraocular movements. Pupils were 4 mm and reacted. Facial sensation was intact bilaterally. The muscles of mastication were powerful symmetrically. The muscles of facial expression were powerful symmetrically without a delay of initiation of smile. Hearing was intact to finger rub. The palate arch symmetrically and the tongue was midline with full range of motion. Sternocleidomastoid and trapezius were powerful. Muscle bulk and tone was normal. Power was full and symmetric in the upper and lower extremities. Coordination testing with finger to nose, heel to norman, fine motor and rapid alternating movements was well performed bilaterally. Sensory examination was intact to pain, light touch, proprioception, graphesthesia. There was no extinction to double simultaneous stimulation. Auscultation of the carotid arteries did not reveal a bruit. Heart rhythm was regular without a murmur. Peripheral pulses were symmetric. There was no edema or cyanosis. Review of Relevant I have reviewed the following items rigo (where applicable) has been applied. Labs Laboratory Tests Test 05/18/18 11:16 05/18/18 11:20 05/18/18 22:07 05/19/18 03:50 Glucose (Fingerstick) 137 mg/dL (70-99) White Blood Count 3.4 x10^3/uL (4.0-11.0) Red Blood Count 2.90 x10^6/uL (3.50-5.40) Hemoglobin 9.9 g/dL (12.0-15.5) Hematocrit 30.3 % (36.0-47.0) Mean Corpuscular Volume 104 fL (79-100) Mean Corpuscular Hemoglobin 34 pg (25-35) Mean Corpuscular Hemoglobin Concent 33 g/dL (31-37) Red Cell Distribution Width 18.0 % (11.5-14.5) Platelet Count 178 x10^3/uL (140-400) Prothrombin Time 13.0 SEC (11.7-14.0) Prothromb Time International Ratio 1.0 (0.8-1.1) Activated Partial Thromboplast Time 23 SEC (24-38) Sodium Level 142 mmol/L (136-145) Potassium Level 3.9 mmol/L (3.5-5.1) Chloride Level 106 mmol/L (98-107) Carbon Dioxide Level 24 mmol/L (21-32) Anion Gap 12 (6-14) Blood Urea Nitrogen 28 mg/dL (7-20) Creatinine 2.0 mg/dL (0.6-1.0) Estimated GFR (Cockcroft-Gault) 24.9 Glucose Level 135 mg/dL (70-99) Calcium Level 8.9 mg/dL (8.5-10.1) Vitamin B12 Level 1290 pg/mL (247-911) Thyroid Stimulating Hormone (TSH) 3.295 uIU/mL (0.358-3.74) Urine Color Yellow Urine Clarity Clear Urine pH 5.0 Urine Specific [place] 1.025 Urine Protein Negative mg/dL (NEG-TRACE) Urine Glucose (UA) 500 mg/dL (NEG) Urine Ketones (Stick) Negative mg/dL (NEG) Urine Blood Negative (NEG) Urine Nitrite Negative (NEG) Urine Bilirubin Negative (NEG) Urine Urobilinogen Dipstick 0.2 mg/dL (0.2 mg/dL) Urine Leukocyte Esterase Negative (NEG) Urine RBC 0 /HPF (0-2) Urine WBC 5-10 /HPF (0-4) Urine Squamous Epithelial Cells Occ /LPF Urine Bacteria Few /HPF (0-FEW) Urine Mucus Mod /LPF Triglycerides Level 70 mg/dL (0-150) Cholesterol Level 259 mg/dL (0-200) LDL Cholesterol, Calculated 154 mg/dL (0-100) VLDL Cholesterol, Calculated 14 mg/dL (0-40) Non-HDL Cholesterol Calculated 168 mg/dL (0-129) HDL Cholesterol 91 mg/dL (40-60) Cholesterol/HDL Ratio 2.8 Laboratory Tests Test 05/18/18 22:07 05/19/18 03:50 Urine Color Yellow Urine Clarity Clear Urine pH 5.0 Urine Specific [place] 1.025 Urine Protein Negative mg/dL (NEG-TRACE) Urine Glucose (UA) 500 mg/dL (NEG) Urine Ketones (Stick) Negative mg/dL (NEG) Urine Blood Negative (NEG) Urine Nitrite Negative (NEG) Urine Bilirubin Negative (NEG) Urine Urobilinogen Dipstick 0.2 mg/dL (0.2 mg/dL) Urine Leukocyte Esterase Negative (NEG) Urine RBC 0 /HPF (0-2) Urine WBC 5-10 /HPF (0-4) Urine Squamous Epithelial Cells Occ /LPF Urine Bacteria Few /HPF (0-FEW) Urine Mucus Mod /LPF Triglycerides Level 70 mg/dL (0-150) Cholesterol Level 259 mg/dL (0-200) LDL Cholesterol, Calculated 154 mg/dL (0-100) VLDL Cholesterol, Calculated 14 mg/dL (0-40) Non-HDL Cholesterol Calculated 168 mg/dL (0-129) HDL Cholesterol 91 mg/dL (40-60) Cholesterol/HDL Ratio 2.8 Medications Current Medications Iohexol (Omnipaque 350 Mg/ml) 75 ml 1X ONCE IV ; Start 05/18/18 at 11:30; Stop 05/18/18 at 11:32; Status DC Info (CONTRAST GIVEN -- Rx MONITORING) 1 each PRN DAILY PRN MC SEE COMMENTS; Start 05/18/18 at 11:45; Stop 05/20/18 at 11:44 Aspirin (Children'S Aspirin) 324 mg 1X ONCE PO Last administered on 05/18/18at 13:24; Start 05/18/18 at 13:00; Stop 05/18/18 at 13:05; Status DC Levothyroxine Sodium (Synthroid) 88 mcg DAILY06 PO ; Start 05/19/18 at 06:00; Status Cancel Aspirin (Manju Aspirin) 325 mg DAILYWBKFT PO Last administered on 05/19/18at 08: 10; Start 05/19/18 at 08:00 Simvastatin (Zocor) 5 mg QHS PO ; Start 05/18/18 at 21:00; Stop 05/18/18 at 21: 00; Status DC Levothyroxine Sodium (Synthroid) 88 mcg DAILY06 PO Last administered on at 06:01; Start 05/19/18 at 06:00 Acyclovir (Zovirax) 200 mg BID PO Last administered on 05/19/18at 08:10; Start 05/18/18 at 21:00 Ondansetron HCl (Zofran Odt) 4 mg PRN Q6HRS PRN PO NAUSEA/VOMITING; Start 05/18 at 17:00 Loperamide HCl (Imodium) 2 mg PRN Q15MIN PRN PO DIARRHEA; Start 05/18/18 at 17: 00 Atorvastatin Calcium (Lipitor) 40 mg QHS PO ; Start 05/19/18 at 21:00 Sodium Chloride 1,000 ml @ 100 mls/hr Q10H IV Last administered on 05/19/18at 12:01; Start 05/19/18 at 11:45 Active Scripts Active Atorvastatin Calcium 40 Mg Tablet 40 Mg PO QHS 30 Days Synthroid (Levothyroxine Sodium) 88 Mcg Tablet 88 Mcg PO DAILY06 30 Days Aspirin 325 Mg Tablet 325 Mg PO DAILYWBKFT 30 Days Acyclovir 200 Mg Capsule 200 Mg PO BID 30 Days Vitals/I & O Vital Sign - Last 24 Hours 05/18/18 05/18/18 05/18/18 05/18/18 13:30 14:40 19:05 20:00 Temp 98.4 98.2 98.4 98.2 Pulse 96 83 87 Resp 14 16 B/P (MAP) 132/80 (97) 118/80 (93) Pulse Ox 97 96 95 O2 Delivery Room Air Room Air Room Air 05/18/18 05/19/18 05/19/18 05/19/18 23:19 03:53 07:00 08:00 Temp 98.3 98.3 98.1 98.3 98.3 98.1 Pulse 78 100 97 Resp 16 16 18 B/P (MAP) 96/60 (72) 95/61 (72) 121/88 (99) Pulse Ox 93 93 97 O2 Delivery Room Air Room Air Room Air Room Air 05/19/18 11:00 Temp 98.0 98.0 Pulse 99 Resp 18 B/P (MAP) 102/71 (81) Pulse Ox 94 O2 Delivery Room Air Intake and Output 05/18/18 05/18/18 05/19/18 14:59 22:59 06:59 Intake Total 275 ml 100 ml Balance 275 ml 100 ml DEMI BETH MD May 19, 2018 13:10
[2018-05-19 15:00] VITALS: BP 102/67
--- NOTE | 2018-05-19 15:23 | CONS ---
DATE OF CONSULTATION: 05/18/2018 REQUESTING PHYSICIAN: Dr. Indigo Stone. REASON FOR CONSULTATION: Multiple myeloma, on chemotherapy, now admitted with possible TIA. HISTORY OF PRESENT ILLNESS: The patient is a 67-year-old female who was diagnosed with multiple myeloma by a bone marrow biopsy on 01/29/2018. She also had renal failure requiring hemodialysis and she is now off of hemodialysis. She was started on chemotherapy with Cytoxan, Velcade and dexamethasone from 02/16/2018. Cycle #4 was initiated on 05/11/2018. She was due for chemotherapy cycle 4, day 8 on 05/18/2018 but she developed right-sided facial weakness and right facial droop and drooling and she had slurred speech. Hence, she was brought into the Emergency Room and she underwent CT scan of the head on 05/18/2018 that was unremarkable. Hence, an MRI was done on 05/18/2018 that is negative for cerebrovascular accident. No acute abnormalities. She is already feeling better and she feels that she is back to her normal self. She has not had any more facial weakness and drooling has also resolved. PAST MEDICAL HISTORY: Hypothyroidism. SOCIAL HISTORY: She is , never smoker. FAMILY HISTORY: Negative for multiple myeloma. REVIEW OF SYSTEMS: A 12-point review of system was performed. Pertinent positives are mentioned in the history of present illness. Rest of the system review is negative. PHYSICAL EXAMINATION: GENERAL APPEARANCE: The patient is a 67-year-old female who is in no acute cardiorespiratory distress. VITAL SIGNS: Blood pressure 132/80, temperature 98.4. HEENT: Head: Atraumatic, normocephalic. Eyes: No icterus. NECK: Supple. CHEST: Bilaterally symmetrical. No crepitations or rhonchi heard. HEART: S1, S2 normal. ABDOMEN: Soft, nontender. CENTRAL NERVOUS SYSTEM: No focal deficits. LYMPHATICS: No lymphadenopathy. SKIN: No rashes. PSYCHOLOGIC: Mood and affect are appropriate. LABORATORY DATA: WBC 3.4, hemoglobin 9.9, platelet count 178, creatinine 2.0, BUN 28. IMPRESSION AND PLAN: 1. Multiple myeloma diagnosed on 01/29/2018. She was started on chemotherapy on 02/16/2018 with Cytoxan, Velcade, dexamethasone. She took cycle 4, day 8 of Cytoxan and Decadron on 05/18/2018. Plan to continue with Velcade on 05/21/2018. 2. CVA versus TIA. MRI and CT is negative and hence this is most likely a TIA. I discussed with Neurology. I await further management per Neurology. She already received aspirin. 3. End-stage renal disease. She was on hemodialysis and now she is not needing hemodialysis anymore. Her creatinine continues to improve and it is now down to 2.0. She will follow up with Nephrology. 4. She is on acyclovir 400 mg half a tablet by mouth twice a day and I will go ahead and order that. REBEKA DUNCAN MD DR: MALGORZATA/shonna JOB#: [id number] / [id number] FLOR
--- NOTE | 2018-05-19 15:43 | NUR ---
Discharge Note: BECKY VELA [address] [place] [address] Discharge instructions and discharge home medications reviewed with Patient and a copy given. All questions have been answered and understanding verbalized. The following instructions and handouts were given: TIA, diet, Stroke Education Discontinued lines and drains: 2 x PIV w/o complication Patient discharged to home with spouse.
[2018-05-19] MEDS ORDERED: ATORVASTATIN CALCIUM 40 MG TABLET. PO SCH (21:00)
[2018-05-20 00:07] LABS: HEMOGLOBIN A1C 6.1 % (4.8-5.6)
[2018-05-22 18:11] LABS: ANA INTERP Negative (.)
== END 2018-05-19 15:00 | disposition home or self-care (01) | DRG 69 ==
LOC: ER 11:09 → 6 SOUTH 12:05
PROVIDERS: ADMIT Internal Medicine; ATTEND Internal Medicine
DX: G45.9 Transient cerebral ischemic attack, unspecified (principal); C90.00 Multiple myeloma not having achieved remission; N18.4 Chronic kidney disease, stage 4 (severe); E03.9 Hypothyroidism, unspecified; R47.81 Slurred speech; D53.9 Nutritional anemia, unspecified; R29.810 Facial weakness; R73.9 Hyperglycemia, unspecified; E78.2 Mixed hyperlipidemia; Z86.73 Personal history of transient ischemic attack (TIA), and cerebral infarction without residual deficits; Z79.82 Long term (current) use of aspirin
CPT/HCPCS: 36415; 70450; 70551; 80048; 80061; 81001; 82607; 82962; 83036; 84443; 85027; 85610; 85730; 86038; 93005; 93306; 93880; J7030; 99285-25

== ENCOUNTER → 2019-03-25 | Outpatient (CLI) | payer MEDICARE ==
[~2019-03-25] MED LIST: ACYC200C PO; ASPI325T8 PO; ATOR40TA59 PO; LEVO88TA2 PO
--- NOTE | 2019-03-26 14:03 | RAD ---
HIP LEFT 2V WITH PELVIS History: Pain. Technique: AP view the pelvis and 2 additional views of the left hip. Comparison: None. Findings: Lower lumbar spondylosis. Normal alignment of the hips. No fracture. Impression: 1. No acute osseous abnormality. 2. Lower lumbar spondylosis. Electronically signed by: Mykel Lopez DO (03/26/2019 2:00 PM) [id number]
== END | disposition home or self-care (01) ==
LOC: RAD 15:25
PROVIDERS: ATTEND Internal Medicine Hematology & Oncology
DX: M25.552 Pain in left hip (principal); M47.816 Spondylosis without myelopathy or radiculopathy, lumbar region; C90.00 Multiple myeloma not having achieved remission
CPT/HCPCS: 73502